=== PATIENT | male | born 1945 | race Caucasian/White ===

== ENCOUNTER 2017-02-06 08:39 | Outpatient (CLI) | payer MEDICARE | END 2017-02-06 08:40 | disposition home or self-care (01) | LOC: LABBT 08:39 | PROVIDERS: ATTEND Surgery | DX: Z01.818 Encounter for other preprocedural examination (principal); M48.061 Spinal stenosis, lumbar region without neurogenic claudication; M54.16 Radiculopathy, lumbar region | CPT/HCPCS: 80048; 85027; 85610; 85730 ==

== ENCOUNTER 2017-02-13 14:51 | Day surgery (SDC) | payer MEDICARE ==
[2017-02-06 09:16] VITALS: BMI 28.3
[2017-02-06 09:59] LABS: Hematocrit 47.3 % (42.0-52.0); Mean Platelet Volume 6.5 fL (7.4-10.4); Red Blood Cell (RBC) Count 4.79 mill/uL (4.70-6.10); White Blood Cell (WBC) Count 5.4 thou/uL (4.8-10.8)
[2017-02-06 10:09] LABS: PTT 25.2 SEC (22.9-36.1); Prothrombin Time 13.2 SEC (12.0-14.7)
[2017-02-06 10:19] LABS: Anion Gap 12 mmol/L (10-20); BUN (Urea Nitrogen) 13 mg/dL (8.4-25.7); Calc. Creatinine Clearance 95 mL/min (70-130); Calcium 9.1 mg/dL (7.8-10.44); Carbon Dioxide 28 mmol/L (23-31); Chloride 105 mmol/L (98-107); Estimated GFR-MDRD 88
[2017-02-13] MEDS ORDERED: CEFAZOLIN/Water 2 GM/20 ML SYRINGE ONE (17:04)
[2017-02-13] MEDS ORDERED: Sodium Chloride 0.9% 10 ML ONE (18:15)
[2017-02-13] MEDS ORDERED: Thrombin 5000 UNITS/5 ML VIAL ONE (18:15)
[2017-02-13] MEDS ORDERED: Bacitracin Zinc Ointment 30 gm TUBE ONE (18:15)
[2017-02-13] MEDS ORDERED: Ondansetron HCl/PF 4 MG/2 ML Vial ONE ×3 (18:39→20:24)
[2017-02-13] MEDS ORDERED: Glycopyrrolate 0.2 MG/ML 5 ML SYRINGE ONE (18:39)
[2017-02-13] MEDS ORDERED: Ketorolac Tromethamine 30 MG/ML VIAL ONE (18:39)
[2017-02-13] MEDS ORDERED: Lidocaine 1% PF 5 ML VIAL ONE (18:39)
[2017-02-13] MEDS ORDERED: Dexamethasone 20 MG/5 ML VIAL ONE (18:39)
[2017-02-13] MEDS ORDERED: Propofol 200 MG/20 ML VIAL ONE (18:39)
[2017-02-13] MEDS ORDERED: Fentanyl 250 MCG/5 ML VIAL ONE (18:39)
[2017-02-13] MEDS ORDERED: Ondansetron HCl/PF 4 MG/2 ML Vial IVP PRN (20:36)
[2017-02-13] MEDS ORDERED: Meperidine HCl/PF 25 MG/ML VIAL SLOW IVP PRN (20:36)
[2017-02-13] MEDS ORDERED: HYDROmorphone 2 MG/ML VIAL SLOW IVP PRN (20:36)
[2017-02-13] MEDS ORDERED: Promethazine HCl 25 MG/ML VIAL SLOW IVP PRN (20:36)
[2017-02-13] MEDS ORDERED: Fentanyl 100 MCG/2 ML VIAL ONE (21:11)
[2017-02-13] MEDS ORDERED: Acetaminophen 325 MG TAB PO PRN (21:16)
[2017-02-13] MEDS ORDERED: Mag-Al 1200 mg/1200 mg/30 ML UDCUP PO PRN (21:16)
[2017-02-13] MEDS ORDERED: tiZANidine HCl 4 MG TAB PO PRN (21:16)
[2017-02-13] MEDS ORDERED: Acetaminophen/Codeine 30-300mg Tablet PO PRN (21:16)
[2017-02-13] MEDS ORDERED: Fleet Enema 133 ML BOT PR PRN (21:16)
[2017-02-13] MEDS ORDERED: Morphine PF 1 MG/ML SYR IVP PRN (21:16)
[2017-02-13] MEDS ORDERED: Bisacodyl 10 MG SUPP PR PRN (21:16)
[2017-02-13] MEDS ORDERED: Milk Of Magnesia 30 ML UDCUP PO PRN (21:16)
[2017-02-13] MEDS ORDERED: HYDROcodone/Acetaminophen 7.5/325 mg Tablet PO PRN (21:16)
[2017-02-13] MEDS ORDERED: Promethazine HCl 25 MG/ML VIAL IM PRN (21:16)
[2017-02-13] MEDS ORDERED: traMADol HCl 50 MG TAB PO PRN (21:16)
[2017-02-13] MEDS ORDERED: Sodium Chloride 0.9% 1,000 ML IV SCH (21:30)
[2017-02-13] MEDS: CEFAZOLIN/Water 2 GM/20 ML SYRINGE SLOW IVP SCH (23:27)
[2017-02-14] MEDS: CEFAZOLIN/Water 2 GM/20 ML SYRINGE SLOW IVP SCH (06:06)
[2017-02-14 08:26] VITALS: TEMP 97.7
[2017-02-14 08:29] VITALS: BP 133/74
[2017-02-14] MEDS ORDERED: Gabapentin 300 MG CAP PO SCH (09:00)
[2017-02-14] MEDS ORDERED: Ubidecarenone 50 MG CAP PO SCH (09:00)
[2017-02-14] MEDS ORDERED: Magnesium Oxide 250 MG TAB PO SCH (09:00)
[2017-02-14] MEDS ORDERED: MULTIVITAMIN PO SCH (09:00)
[2017-02-14] MEDS ORDERED: COLLOIDAL SILVER PO SCH (09:00)
--- NOTE | 2017-02-14 10:14 | OP ---
DATE OF SURGERY: 02/13/2017 SURGEON: Pancho Swain M.D. DYNAMITER: Jani Serrano PA-C. OR: 12. WOUND TYPE: Type 1 wound. PREPROCEDURE DIAGNOSES: Low back and right leg pain with bilateral lumbar stenosis L3-L5 with a hist ory of right L5-S1 surgery in the past. PROCEDURE: L3-L4 and L4-L5 laminectomies, partial facetectomies and foraminotomies of the L3, L4, L5 nerve roots bilaterally. DESCRIPTION OF PROCEDURE: After informed consent was obtained from the patient, the patient brought to OR 12. Proper patient pause and identification was carried out. He was placed under excellent ge neral endotracheal anesthesia and positioned prone on the operating room table. All appropriate poin ts were padded. We identified the prior lumbar wound that was off to the right, as the surgery had b een a right-sided L5-S1 surgery in the past. As such, I opted for more midline incision, largely sup erior to that incision; in essence, we are dealing with the L3-L5 segments. This area was sterilely cleansed, prepared, and draped. Proper patient pause and identification was carried out. The wound was then opened with a combination of sharp, monopolar, and blunt dissection. The L3, L4, and L5 marixa analy spines and lamina were exposed. We really did not encounter much in the way of scar tissue given again that the surgery was lower than our intended surgical goal or surgical location. We identifie d the L3, L4, L5 dorsal spines and lamina. Localization film confirmed our area of interest. We the n performed L3, L4, L5 laminectomies, partial facetectomies and foraminotomies of the L3, L4, and L5 nerve roots bilaterally and the common dural tube. There was no spinal fluid leak. Hemostasis was m aximized throughout. The wound was then closed in anatomic layers and the patient then emerged from anesthesia.
--- NOTE | 2017-02-18 08:40 | EKG ---
Test Reason : Blood Pressure : / mmHG Vent. Rate : 052 BPM Atrial Rate : 052 BPM P-R Int : 152 ms QRS Dur : 086 ms QT Int : 414 ms P-R-T Axes : 071 039 055 degrees QTc Int : 385 ms Sinus bradycardia with Premature atrial complexes Otherwise normal ECG No previous ECGs available Confirmed by Kesha GARCIA ([id number]) on 02/18/2017 8:40:04 AM Referred By: KRISTIAN Confirmed By:Kesha GARCIA
== END 2017-02-14 08:25 | disposition home or self-care (01) ==
LOC: SDC 14:51 → SURG A 22:13 → SDC 02-14 08:25
PROVIDERS: ATTEND Surgery
PROC: 01NB0ZZ Release Lumbar Nerve, Open Approach (ICD-10-PCS; principal; 2017-02-13)
DX: M54.16 Radiculopathy, lumbar region (principal); M48.061 Spinal stenosis, lumbar region without neurogenic claudication; G47.30 Sleep apnea, unspecified; N40.0 Benign prostatic hyperplasia without lower urinary tract symptoms; J40 Bronchitis, not specified as acute or chronic; Z99.89 Dependence on other enabling machines and devices; Z79.899 Other long term (current) drug therapy; Z98.52 Vasectomy status; Z90.89 Acquired absence of other organs; Z98.890 Other specified postprocedural states; Z86.19 Personal history of other infectious and parasitic diseases
CPT/HCPCS: 76001; 80048; 85027; 85610; 85730; 93005; 93010; 96374; A4216; J1100; J1885; J2001; J2405; J2704; J3010; J3370; J3490